=== PATIENT | female | born 2000 | race Caucasian/White ===

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

== ENCOUNTER 2022-01-08 20:20 | Emergency (ER) | payer BC ==
[2022-01-08] MEDS ORDERED: Ciprofloxacin 500 MG Tab PO ONE (21:44)
== END 2022-01-08 21:50 | disposition home or self-care (01) ==
LOC: LL.ED 20:20
DX: S60.511A Abrasion of right hand, initial encounter (principal); Z88.0 Allergy status to penicillin; Z88.1 Allergy status to other antibiotic agents; W55.03XA Scratched by cat, initial encounter
CPT/HCPCS: 99283; A9270-GY

== ENCOUNTER 2024-11-21 13:39 | Emergency (ER) | payer BC | END 2024-11-21 14:40 | disposition home or self-care (01) | LOC: LL.ED 13:39 | DX: F41.9 Anxiety disorder, unspecified (principal); R00.0 Tachycardia, unspecified; F17.210 Nicotine dependence, cigarettes, uncomplicated; Z88.8 Allergy status to other drugs, medicaments and biological substances; Z91.018 Allergy to other foods; Z88.0 Allergy status to penicillin; Z79.899 Other long term (current) drug therapy | CPT/HCPCS: 82947; 99284 ==